=== PATIENT | female | born 1955 | race Hispanic/Latino ===

== ENCOUNTER 2018-04-26 20:04 | Emergency (ER) | payer OTHER, SELFPAY ==
[2018-04-26] MEDS ORDERED: Morphine 10 MG/ML VIAL ONE (20:09)
[2018-04-26] MEDS ORDERED: Ondansetron HCl/PF 4 MG/2 ML Vial ONE (20:12)
[2018-04-26] MEDS ORDERED: Morphine 4 MG/ML Carpuject ONE ×2 (20:18→21:49)
[2018-04-26 20:28] LABS: #Basophils 0.1 thou/uL (0.0-0.2); #Eosinphils 0.1 thou/uL (0.0-0.7); #Lymphocytes 3.5 thou/uL (1.20-3.40); #Monocytes 0.7 thou/uL (0.11-0.59); #Neutrophils 5.9 thou/uL (1.40-6.50); %Basophils 1.3 % (0.0-1.0); %Eosinophils 0.6 % (0.0-10.0); %Monocytes 6.5 % (0.0-10.0); %Neutrophils 57.7 % (42.0-75.0); Mean Corpuscular HGB CONC 36.2 g/dL (32.0-36.0); Mean Corpuscular Hemoglobin 29.3 pg (27.0-31.0); Mean Corpuscular Volume 80.9 fL (78.0-98.0); Mean Platelet Volume 6.4 fL (7.4-10.4); Platelet Count 266 thou/uL (130-400); RBC Distribution Width 12.5 % (11.5-14.5); Red Blood Cell (RBC) Count 5.14 mill/uL (4.20-5.40); White Blood Cell (WBC) Count 10.2 thou/uL (4.8-10.8)
[2018-04-26 20:40] LABS: ALT (SGPT) 12 U/L (8-55); AST (SGOT) 12 U/L (5-34); Albumin 4.8 g/dL (3.5-5.0); Alkaline Phosphatase 90 U/L (40-150); Anion Gap 17 mmol/L (10-20); BUN (Urea Nitrogen) 11 mg/dL (9.8-20.1); Bilirubin, Total 0.5 mg/dL (0.2-1.2); Calc. Creatinine Clearance 0 mL/min (70-130); Calcium 10.3 mg/dL (7.8-10.44); Carbon Dioxide 22 mmol/L (22-29); Chloride 105 mmol/L (98-107); Estimated GFR-MDRD 69; Globulin 2.9 g/dL (2.4-3.5); Glucose 244 mg/dL (70-105); Lipase 62 U/L (8-78); Potassium 3.9 mmol/L (3.5-5.1); Protein, Total 7.7 g/dL (6.0-8.3); Sodium 140 mmol/L (136-145)
[2018-04-26 20:41] LABS: CKMB 1.9 ng/mL (0-6.6); Troponin I Less than 0.010 ng/mL (< 0.028)
[2018-04-26 22:17] LABS: Bilirubin Negative (Negative); Blood, Urine Negative (Negative); Clarity Clear (Clear); Glucose, Urine (Dipstick) 500 mg/dL (Negative); Leukocyte Negative (Negative); Nitrite Negative (Negative); Protein, Urine (Dipstick) 30 mg/dL (Neg-Trace); Urobilinogen 0.2 mg/dL (0.2-1.0)
[2018-04-26 22:25] LABS: Bacteria/HPF Rare-Few HPF (None Seen); RBC/HPF 0-3 HPF (0-3); Squamous Epithelial 0-3 HPF (0-3); WBC/HPF 0-3 HPF (0-3)
--- NOTE | 2018-04-26 23:49 | CT ---
CT ABDOMEN AND PELVIS WITHOUT CONTRAST: 04/26/2018 COMPARISON: 09/17/2016 TECHNIQUE: Axial slices were acquired without IV contrast. Coronal reconstructions were then done. FINDINGS: Multiple dilated loops of small bowel are seen from the proximal though the mid small bowel. In the mid to distal small bowel region, it begins to assume a more normal size. The loops are fluid filled and measure up to 3 cm in diameter. The findings suggest a small bowel obstruction in the mid to di stal small bowel region. The colon shows no distention or gross inflammatory change around it. Ther e might be a little thickening of the wall of the entire left colon, but this is more likely longstan ding than acute. The lung bases are clear. The liver contains a small, 1.5 cm cystic area in the left lobe, anteriorl y. It is slightly larger than it was in 2016. Ultrasound would confirm that it is indeed a cyst. T he spleen, pancreas, gallbladder, adrenal glands, kidneys, and abdominal aorta show no acute findings . No free air or free fluid is seen. CT of the pelvis sows no pelvic mass, inflammatory change, or free fluid. The patient has epidural s timulator leads in place in the lumbar spine, with a generator posteriorly, behind the right SI joint . IMPRESSION: 1. Findings consistent with a small bowel obstruction, most likely located in the mid to distal smal l bowel, 2. A 1.5 cm low density area in the left lobe of the liver, present previously but slightly larger. Statistically, still most likely a cyst. Ultrasound would be confirmatory. Findings discussed with Dr. Vázquez at 2046 hours on 04/26/2018. CODE CR POS: HOME
--- NOTE | 2018-04-26 23:52 | RAD ---
PORTABLE CHEST: 04/26/20186 HOURS COMPARISON: 01/13/2011 FINDINGS: Portable upright study shows an NG tube has been placed. I cannot accurately assess the location of the tip of the NG tube. It is at least in the distal esophagus, but I cannot confirm it has entered the stomach or not. A darker film would be needed. The heart is upper normal in size but would be b jayesh assessed on a PA film. There is no vascular congestion, edema, or pleural effusion. The lungs are clear. IMPRESSION: 1. Borderline heart size. Reassess on a posterior-anterior film. 2. Nasogastric tube seen poorly. The tip is at least to the gastroesophageal junction but I cannot confirm if it is beyond or not. POS: HOME
[2018-04-27 00:15] LABS: Lactic Acid 1.7 mmol/L (0.5-2.2)
[2018-04-27] MEDS ORDERED: Morphine 4 MG/ML Carpuject ONE ×2 (00:23→01:53)
== END 2018-04-27 02:20 | disposition short-term general hospital (02) ==
LOC: BURERS 20:04
DX: K56.609 Unspecified intestinal obstruction, unspecified as to partial versus complete obstruction (principal); K21.9 Gastro-esophageal reflux disease without esophagitis; F41.9 Anxiety disorder, unspecified; F32.9 Major depressive disorder, single episode, unspecified; F43.10 Post-traumatic stress disorder, unspecified; E11.9 Type 2 diabetes mellitus without complications; I10 Essential (primary) hypertension; Z79.4 Long term (current) use of insulin; Z87.891 Personal history of nicotine dependence; Z79.899 Other long term (current) drug therapy
CPT/HCPCS: 36415; 71045; 74176; 80053; 81003; 81015; 82553; 83605; 83690; 84484; 85025; 93005; 96374; 96375; 96376; J2270; J2405

== ENCOUNTER 2018-08-21 09:04 | Emergency (ER) | payer OTHER ==
[2018-08-21 09:33] LABS: #Basophils 0.1 thou/uL (0.0-0.2); #Eosinphils 0.1 thou/uL (0.0-0.7); #Monocytes 0.5 thou/uL (0.11-0.59); #Neutrophils 6.8 thou/uL (1.40-6.50); %Basophils 1.5 % (0.0-1.0); %Eosinophils 0.6 % (0.0-10.0); %Lymphocytes 21.2 % (21.0-51.0); %Monocytes 5.7 % (0.0-10.0); %Neutrophils 71.2 % (42.0-75.0); Hemoglobin 13.8 g/dL (12.0-16.0); Mean Corpuscular HGB CONC 34.2 g/dL (32.0-36.0); Mean Corpuscular Hemoglobin 28.8 pg (27.0-31.0); Mean Corpuscular Volume 84.3 fL (78.0-98.0); Mean Platelet Volume 8.3 fL (7.4-10.4); Platelet Count 250 thou/uL (130-400); RBC Distribution Width 12.4 % (11.5-14.5); White Blood Cell (WBC) Count 9.5 thou/uL (4.8-10.8)
[2018-08-21] MEDS ORDERED: Ondansetron PF 4 MG/2 ML Vial ONE (09:34)
[2018-08-21] MEDS ORDERED: Morphine 4 MG/ML VIAL ONE ×4 (09:34→14:58)
[2018-08-21 09:49] LABS: ALT (SGPT) 11 U/L (8-55); AST (SGOT) 12 U/L (5-34); Albumin 3.9 g/dL (3.4-4.8); Alkaline Phosphatase 85 U/L (40-150); Anion Gap 14 mmol/L (10-20); BUN (Urea Nitrogen) 10 mg/dL (9.8-20.1); Bilirubin, Total 0.7 mg/dL (0.2-1.2); Calc. Creatinine Clearance 0 mL/min (70-130); Calcium 9.8 mg/dL (7.8-10.44); Carbon Dioxide 19 mmol/L (23-31); Chloride 106 mmol/L (98-107); Estimated GFR-MDRD 79; Globulin 2.9 g/dL (2.4-3.5); Glucose 269 mg/dL (80-115); Lipase 29 U/L (8-78); Potassium 4.2 mmol/L (3.5-5.1); Protein, Total 6.8 g/dL (6.0-8.3); Sodium 135 mmol/L (136-145)
[2018-08-21 09:52] LABS: CKMB 0.9 ng/mL (0-6.6); Troponin I Less than 0.010 ng/mL (< 0.028)
[2018-08-21 10:34] LABS: Lactic Acid 1.4 mmol/L (0.5-2.2)
[2018-08-21] MEDS ORDERED: Oxymetazoline HCl 0.05% ( 15 ML ) ONE (11:04)
[2018-08-21] MEDS ORDERED: Lidocaine Viscous Sol 2% 15 ml UD Cup ONE (11:04)
[2018-08-21] MEDS ORDERED: Sodium Chloride 0.9% 100 ML ONE (11:04)
[2018-08-21] MEDS ORDERED: Piperacillin/Tazobactam 3.375 GM VIAL ONE (11:04)
[2018-08-21] MEDS ORDERED: Benzocaine 20% Spray 60 ML CAN ONE (11:04)
[2018-08-21 12:13] LABS: Bilirubin Negative (Negative); Blood, Urine Negative (Negative); Clarity Clear (Clear); Glucose, Urine (Dipstick) 500 mg/dL (Negative); Leukocyte Negative (Negative); Nitrite Negative (Negative); Protein, Urine (Dipstick) 30 mg/dL (Neg-Trace); Specific Gravity, Urine 1.025 (1.005-1.030)
[2018-08-21 12:19] LABS: Bacteria/HPF Rare-Few HPF (None Seen); RBC/HPF None Seen HPF (0-3); Squamous Epithelial 0-3 HPF (0-3); WBC/HPF 0-3 HPF (0-3)
--- NOTE | 2018-08-21 19:50 | RAD ---
PORTABLE CHEST: Date: 08-21-18 An AP portable film at 0933 is compared with an 04-26-18 study. FINDINGS: There has been no adverse internal change. The heart is normal in size and the lungs are clear. The s mall left lower lobe nodule seen on CT is not visible on the plain radiograph. IMPRESSION: No acute finding. POS: HOME
--- NOTE | 2018-08-21 19:52 | CT ---
CT ABDOMEN AND PELVIS WITHOUT CONTRAST: 08/21/[address] of the abdomen and pelvis was done for evaluation of abdominal pain. There is a prior histo ry of bowel obstructions. Comparison is made with several prior CT scans dating back to 2015. The major finding on this study is dilated fluid filled loops of ileum which have thick oliva and abu ndant stranding around the bowel itself. Loops range up to 2.5 cm in diameter. There is also some thi ckening of the cecal wall as well. The findings presumably represent a distal small bowel obstruction near the ileocecal level. The surrounding stranding could be associated with obstruction, an infecti ous component or vascular compromise. The terminal ileum in particular has very thick oliva, much str eaking around it, and I am concerned with its overall health. No free air or substantial free fluid was seen. Elsewhere, there is a 7 mm nodule in the left lower lobe which has been followed on many scans and is stable. The lung bases are clear. There is a 1.2 cm cystic lesion of the left lobe of the liver whic h has been present on prior scans as well. It is probably within 1 to 2 mm of the same size as before . The spleen, pancreas, adrenal glands, and kidneys showed no acute findings. The aorta is normal in caliber. CT of the pelvis was remarkable for the findings in the terminal ileum and cecum, as well as the surr ounding vielka-intestinal streaking. IMPRESSION: 1. Probable distal small bowel obstruction near the ileocecal valve with abundant vielka-intestina l stranding and thickening that is worse than was seen on some of the prior episodes. I cannot rule o ut an infectious or vascular component to this. I am concerned about the health of the terminal ileum . Referral recommended. 2. 7 mm left lower lobe nodule, stable. 3. Small hepatic cyst, stable. Findings discussed with Dr. Soto at 1012 on 08/21/18. POS: HOME
== END 2018-08-21 14:51 | disposition short-term general hospital (02) ==
LOC: BURERS 09:04
DX: K56.609 Unspecified intestinal obstruction, unspecified as to partial versus complete obstruction (principal); K21.9 Gastro-esophageal reflux disease without esophagitis; E11.9 Type 2 diabetes mellitus without complications; I10 Essential (primary) hypertension; F41.9 Anxiety disorder, unspecified; F43.10 Post-traumatic stress disorder, unspecified; F32.9 Major depressive disorder, single episode, unspecified; Z87.891 Personal history of nicotine dependence; Z79.899 Other long term (current) drug therapy; Z79.84 Long term (current) use of oral hypoglycemic drugs
CPT/HCPCS: 71045; 74176; 80053; 81003; 81015; 82553; 83605; 83690; 84484; 85025; 93005; 96365; 96375; 96376; J2270; J2405; J2543; J7050

== ENCOUNTER 2018-09-30 12:26 | Emergency (ER) | payer OTHER ==
[2018-09-30] MEDS ORDERED: Morphine 4 MG/ML VIAL ONE ×3 (12:42→17:48)
[2018-09-30] MEDS ORDERED: Ondansetron PF 4 MG/2 ML Vial ONE (12:43)
[2018-09-30 12:50] LABS: #Basophils 0.1 thou/uL (0.0-0.2); #Lymphocytes 1.6 thou/uL (1.20-3.40); #Monocytes 0.7 thou/uL (0.11-0.59); #Neutrophils 9.4 thou/uL (1.40-6.50); %Basophils 0.6 % (0.0-1.0); %Eosinophils 0.1 % (0.0-10.0); %Lymphocytes 13.9 % (21.0-51.0); %Monocytes 5.6 % (0.0-10.0); %Neutrophils 79.9 % (42.0-75.0); Hemoglobin 14.5 g/dL (12.0-16.0); Mean Corpuscular HGB CONC 34.6 g/dL (32.0-36.0); Mean Corpuscular Hemoglobin 29.5 pg (27.0-31.0); Mean Corpuscular Volume 85.1 fL (78.0-98.0); Mean Platelet Volume 6.6 fL (7.4-10.4); Platelet Count 284 thou/uL (130-400); RBC Distribution Width 12.6 % (11.5-14.5); Red Blood Cell (RBC) Count 4.92 mill/uL (4.20-5.40); White Blood Cell (WBC) Count 11.7 thou/uL (4.8-10.8)
[2018-09-30 13:08] LABS: ALT (SGPT) 11 U/L (8-55); AST (SGOT) 10 U/L (5-34); Albumin 4.3 g/dL (3.4-4.8); Alkaline Phosphatase 89 U/L (40-150); Anion Gap 16 mmol/L (10-20); BUN (Urea Nitrogen) 18 mg/dL (9.8-20.1); Bilirubin, Total 0.5 mg/dL (0.2-1.2); Calc. Creatinine Clearance 0 mL/min (70-130); Carbon Dioxide 20 mmol/L (23-31); Chloride 102 mmol/L (98-107); Estimated GFR-MDRD 56; Globulin 3.1 g/dL (2.4-3.5); Glucose 301 mg/dL (80-115); Lipase 40 U/L (8-78); Potassium 3.8 mmol/L (3.5-5.1); Protein, Total 7.4 g/dL (6.0-8.3); Sodium 134 mmol/L (136-145)
[2018-09-30 14:30] LABS: Bilirubin Negative (Negative); Clarity Clear (Clear); Glucose, Urine (Dipstick) 100 mg/dL (Negative); Leukocyte Negative (Negative); Nitrite Negative (Negative); Protein, Urine (Dipstick) Trace mg/dL (Neg-Trace); Urobilinogen 0.2 mg/dL (0.2-1.0)
[2018-09-30 14:31] LABS: Blood, Urine Negative (Negative)
--- NOTE | 2018-09-30 19:51 | RAD ---
PORTABLE CHEST: Date: 09-30-18 An AP portable film at 1311 is compared with an 08-21-18 study. FINDINGS: The heart is normal in size and the lungs are clear. No infiltrate or effusion was seen. No air is se en beneath the diaphragm. The mediastinum appears normal. IMPRESSION: No acute thoracic finding. POS: HOME
--- NOTE | 2018-09-30 20:01 | CT ---
CT ABDOMEN AND PELVIS WITHOUT CONTRAST: 09/30/2018 HISTORY/TECHNIQUE: A spiral CT of the abdomen and pelvis was performed for evaluation of abdominal pain. COMPARISON: 08/21/2018 FINDINGS: ABDOMEN: The lung bases are clear. A smooth, 7 mm nodule is again noted in the left lower lobe and is stable in appearance and size. The liver and spleen are normal in size. There is a small, 1.3 cm cystic lesion in the left lobe of the liver, seen on prior studies. The pancreas and adrenal glands appear normal. The gallbladder is partially decompressed. The kidneys appear normal. There is no widening of the aorta. With reference to the bowel, there is diffuse wall thickening from the cecum, around through at least the proximal left colon, if not beyond. This is different than the prior study, suggesting diffuse colitis is most likely present. There is still very slight dilation of the terminal ileum with some air-fluid levels in it. Maximum bowel diameter is in the vicinity of 3 cm, for a loop or two. The d ifferential would be between an incomplete bowel obstruction at this level versus reaction to the pat ient's colitis. The more proximal loops of small bowel are not significant dilated. No free air or free fluid is seen. PELVIS: No pelvic masses or fluid collections. There is some streaking in the fat of the pelvis but actually less so than was seen on the prior study. IMPRESSION: 1. Interval thickening of the colonic wall. Colitis is suspected. 2. Mild dilation and air-fluid levels of the terminal ileum, though the size does not seem quite as l arge as before. There is no dilation proximal to it. A partial obstruction at this level versus karyn ction to the colitis would be considerations. 3. Other chronic changes, as noted above, including a small, cystic lesion of the left lobe of the l iver and a stable, 7 mm nodule of the left lower lobe. Findings discussed with Dr. Klein at 1309 hours on 09/30/2018. POS: HOME
== END 2018-09-30 17:50 ==
LOC: BURERS 12:26
DX: K56.609 Unspecified intestinal obstruction, unspecified as to partial versus complete obstruction (principal); K21.9 Gastro-esophageal reflux disease without esophagitis; E11.9 Type 2 diabetes mellitus without complications; I10 Essential (primary) hypertension; F41.9 Anxiety disorder, unspecified; F32.9 Major depressive disorder, single episode, unspecified; F43.10 Post-traumatic stress disorder, unspecified; Z87.891 Personal history of nicotine dependence; Z79.899 Other long term (current) drug therapy; Z79.84 Long term (current) use of oral hypoglycemic drugs
CPT/HCPCS: 71045; 74176; 80053; 81003; 83605; 83690; 85025; 93005; 96361; 96374; 96375; 96376; J2270; J2405

== ENCOUNTER 2019-08-04 21:57 | Emergency (ER) | payer OTHER ==
[2019-08-04 22:33] LABS: #Basophils 0.1 thou/uL (0.0-0.2); #Lymphocytes 2.5 thou/uL (1.20-3.40); #Monocytes 0.6 thou/uL (0.11-0.59); #Neutrophils 8.5 thou/uL (1.40-6.50); %Basophils 0.8 % (0.0-1.0); %Eosinophils 0.3 % (0.0-10.0); %Lymphocytes 21.4 % (21.0-51.0); %Monocytes 4.9 % (0.0-10.0); %Neutrophils 72.5 % (42.0-75.0); Mean Corpuscular HGB CONC 32.2 g/dL (32.0-36.0); Mean Corpuscular Hemoglobin 29.4 pg (27.0-31.0); Mean Corpuscular Volume 91.3 fL (78.0-98.0); Mean Platelet Volume 6.7 fL (7.4-10.4); Platelet Count 261 thou/uL (130-400); RBC Distribution Width 13.4 % (11.5-14.5); Red Blood Cell (RBC) Count 4.77 mill/uL (4.20-5.40); White Blood Cell (WBC) Count 11.7 thou/uL (4.8-10.8)
[2019-08-04 22:35] LABS: Bilirubin Moderate (Negative); Blood, Urine Small (Negative); Glucose, Urine (Dipstick) Negative (Negative); Leukocyte Negative (Negative); Nitrite Negative (Negative); Protein, Urine (Dipstick) 100 mg/dL (Neg-Trace); Urobilinogen 0.2 mg/dL (Less than 2)
[2019-08-04 22:38] LABS: Clarity Hazy (Clear)
[2019-08-04 22:47] LABS: ALT (SGPT) 13 U/L (8-55); AST (SGOT) 10 U/L (5-34); Albumin 4.3 g/dL (3.4-4.8); Alkaline Phosphatase 97 U/L (40-110); Anion Gap 16 mmol/L (10-20); BUN (Urea Nitrogen) 15 mg/dL (9.8-20.1); Bilirubin, Total 0.6 mg/dL (0.2-1.2); Calc. Creatinine Clearance 0 mL/min (70-130); Calcium 10.1 mg/dL (7.8-10.44); Carbon Dioxide 21 mmol/L (23-31); Chloride 103 mmol/L (98-107); Estimated GFR-MDRD 67; Globulin 2.9 g/dL (2.4-3.5); Glucose 278 mg/dL (80-115); Lipase 42 U/L (8-78); Potassium 4.2 mmol/L (3.5-5.1); Protein, Total 7.2 g/dL (6.0-8.3); Sodium 136 mmol/L (136-145)
[2019-08-04 22:49] LABS: Bacteria/HPF Rare-Few HPF (None Seen); Mucous/LPF 1+ LPF (<2+); Squamous Epithelial 0-3 HPF (0-3); Transitional Epithelial 0-3 HPF (None Seen); WBC/HPF 0-3 HPF (0-3)
--- NOTE | 2019-08-05 07:17 | CT ---
PRELIMINARY REPORT/[facility]/EMERGENCY AFTER HOURS PROCEDURE: Addendum created by Nicolas Roth MD on 08/04/2019 11:14 PM Central Time ([place] & [place]) CRITICAL RESULT : The study was discussed on the telephone with GABBY Verma on 08/04/2019 11:14 PM [employer]. The resu lts were understood and acknowledged. Initial Report created on 08/04/2019 11:12 PM Central Time ([place] & [place]) PROCEDURE INFORMATION: Exam: CT Abdomen And Pelvis Without Contrast Exam date and time: 08/04/2019 10:43 PM Clinical history: 64 years old, female; Abdominal pain; Localized; Left lower quadrant (llq); Prior s urgery; Surgery date: 6+ months; Patient HX: PT states she has had numerous sbo in past TECHNIQUE: Imaging protocol: Computed tomography of the abdomen and pelvis without contrast. Radiation optimization: All CT scans at this facility use at least one of these dose optimization yony hniques: automated exposure control; mA and/or kV adjustment per patient size (includes targeted exam s where dose is matched to clinical indication); or iterative reconstruction. COMPARISON: No relevant prior studies available. FINDINGS: Liver: Simple hepatic cyst. Gallbladder and bile ducts: Normal. No calcified stones. No ductal dilation. Pancreas: Normal. No ductal dilation. Spleen: Normal. No splenomegaly. Adrenals: Normal. No mass. Kidneys and ureters: Normal. No hydronephrosis. Stomach and bowel: Extensive suture material in the small bowel consistent with prior small bowel res ection. Distended fluid-filled small bowel with areas of small bowel feces. Slight twisting of the me sentery with additional mesenteric edema. Appendix: No evidence of appendicitis. Vasculature: Unremarkable. No abdominal aortic aneurysm. Lymph nodes: Unremarkable. No enlarged lymph nodes. Bladder: Unremarkable as visualized. Reproductive: Unremarkable as visualized. Bones/joints: Severe L2/L3 degenerative disc change. Mild levoscoliosis Soft tissues: Implanted spinal stimulator in the posterior subcutaneous fat. IMPRESSION: CT findings concerning for possible closed loop distal small bowel obstruction Thank you for allowing us to participate in the care of your patient. Dictated and Authenticated by: Nicolas Roth MD 08/04/2019 11:12 PM Central Time ([place] & [place]) FINAL REPORT CT ABDOMEN AND PELVIS WITHOUT CONTRAST: Date: 08/04/19 Comparison is made with most recent prior CT scan of 09/30/18, as well as other studies back to 01/05. FINDINGS: The lung bases are clear. Again noted is a noncalcified smooth nodule in the left lower lobe peripher ally. Today, it measures about 9.0 mm in diameter. It looks a little more substantial than on the las t study, but going back to 2015 exams, it really has not changed substantially over time. The liver shows a 1.6 cm low density lesion in the medial left lobe. This was present on prior studie s and has not changed substantially over time. A cyst or hemangioma is likely. The spleen, pancreas, gallbladder, adrenal glands, kidneys, and abdominal aorta show no acute change. The major findings on the study are some dilated fluid-filled loops of mid to distal small bowel, ran ging up to 3.4 cm in diameter. Some of the material within it appears feces-like. There is quite a bi t of mesenteric edema and there may even be some mesenteric twisting. The findings suggest a small erick wel obstruction, possibly a closed-loop obstruction. No free air or free fluid was seen. The colon is not distended. CT of the pelvis shows only the findings from the dilated loops of small bowel and mesenteric streaki ng. No free fluid, pelvic mass, or adenopathy seen. IMPRESSION: 1. Findings suspicious for a developing small bowel obstruction, possibly closed loop. 2. 9.0 mm noncalcified nodule of the left lower lobe. Stable when compared to older studies. 3. 1.6 cm low density lesion of the left lobe of the liver, stable. Report in agreement with preliminary reading by Javon. POS: HOME
--- NOTE | 2019-08-05 07:50 | RAD ---
PORTABLE CHEST: DATE: 08/04/2019. FINDINGS: Comparison with the 09/30/2018 study shows no particular change. The heart is normal in size and the l ungs are clear. No lobar infiltrate was appreciated. IMPRESSION: No acute findings. POS: HOME
--- NOTE | 2019-08-05 08:01 | RAD ---
PORTABLE CHEST: DATE: 08/04/2019. FINDINGS: A portable study at 1147 shows there has been interval placement of an NG tube. I can see the NG tub e down to the level of the distal esophagus, but I cannot confirm that it has reached the stomach yet . The lung bases are clear. There are no effusions. The heart size is normal. IMPRESSION: Nasogastric tube seen poorly and seems to be in the distal esophagus. Exam not sensitive enough to t ell if it has been advanced further. POS: HOME
== END 2019-08-05 02:35 | disposition short-term general hospital (02) ==
LOC: BURERS 21:57
DX: K56.609 Unspecified intestinal obstruction, unspecified as to partial versus complete obstruction (principal); K21.9 Gastro-esophageal reflux disease without esophagitis; E11.9 Type 2 diabetes mellitus without complications; I10 Essential (primary) hypertension; F41.9 Anxiety disorder, unspecified; F32.9 Major depressive disorder, single episode, unspecified; F43.10 Post-traumatic stress disorder, unspecified; Z79.4 Long term (current) use of insulin; Z87.891 Personal history of nicotine dependence; Z79.899 Other long term (current) drug therapy
CPT/HCPCS: 71045; 74176; 80053; 81003; 81015; 83605; 83690; 84484; 85025; 94760; A4353